=== PATIENT | male | born 1970 | race Caucasian/White ===

== ENCOUNTER → 2022-06-15 | Day surgery (SDC) | payer BC ==
[~2022-06-15] MED LIST: ASPIRIN81 MG PO; BENICAR20 MG PO; COREG3.125 MG PO; FENTANYL CITRATE/PF 100MCG/2 ML INJ ONE; FUROSEMIDE40 MG PO; GLUCAGON FOR INJ 1 MG VIAL ONE; MIDAZOLAM HCL 2 MG/2 ML VIAL ONE; NIFEDIPINE ER30 M1 PO; PROPOFOL IV EMULSION 10 MG/ML 20 ML VIAL ONE
[2022-06-15 16:05] VITALS: BP 106/64
== END | disposition home or self-care (01) ==
LOC: OR 11:32
PROVIDERS: ATTEND Internal Medicine Gastroenterology
DX: D12.0 Benign neoplasm of cecum (principal); D12.5 Benign neoplasm of sigmoid colon; D12.3 Benign neoplasm of transverse colon; K60.2 Anal fissure, unspecified; K59.09 Other constipation; I10 Essential (primary) hypertension; E66.01 Morbid (severe) obesity due to excess calories; Z68.43 Body mass index [BMI] 50.0-59.9, adult; Z86.16 Personal history of COVID-19; G47.33 Obstructive sleep apnea (adult) (pediatric); Z99.81 Dependence on supplemental oxygen; K57.30 Diverticulosis of large intestine without perforation or abscess without bleeding; K64.8 Other hemorrhoids; Z01.810 Encounter for preprocedural cardiovascular examination
CPT/HCPCS: 0223U; 36415; 45380; 45385; 83630; 83993; 87045; 87177; 87324; 87328; 87449; 93005; J1610; J2250; J2704; J3010; 45378